=== PATIENT | female | born 1990 | race Caucasian/White ===

== ENCOUNTER → 2017-09-26 16:04 | Outpatient (CLI) | payer BC, SELFPAY | PROVIDERS: Family Provider Internal Medicine; PCP Internal Medicine; Visit Provider Internal Medicine | DX: J02.9 Acute pharyngitis, unspecified (principal) | CPT/HCPCS: 87070 ==

== ENCOUNTER → 2019-02-04 15:08 | Outpatient (CLI) | payer BC, SELFPAY ==
[2019-02-01 09:36] VITALS: BMI 23.4
== END ==
PROVIDERS: Family Provider Internal Medicine; PCP Internal Medicine
DX: L01.03 Bullous impetigo (principal); T07.XXXA Unspecified multiple injuries, initial encounter
CPT/HCPCS: 87070; 87205

== ENCOUNTER → 2020-03-23 11:56 | Outpatient (CLI) | payer BC, SELFPAY ==
[2020-03-23 10:43] VITALS: BMI 21.7
[2020-03-28 10:39] LABS: HPV APTIMA, High Risk Negative (Negative)
== END ==
PROVIDERS: PCP Internal Medicine; Referring Provider Obstetrics & Gynecology; Visit Provider Obstetrics & Gynecology
DX: Z12.4 Encounter for screening for malignant neoplasm of cervix (principal)
CPT/HCPCS: 87624; 88175; G0145

== ENCOUNTER → 2020-05-04 12:20 | Outpatient (CLI) | payer BC, SELFPAY ==
[2020-05-04 09:25] VITALS: BMI 21.9
== END ==
PROVIDERS: PCP Internal Medicine; Referring Provider Obstetrics & Gynecology; Visit Provider Obstetrics & Gynecology
DX: N89.8 Other specified noninflammatory disorders of vagina (principal)
CPT/HCPCS: 87070; 87205

== ENCOUNTER → 2020-08-15 11:40 | Outpatient (CLI) | payer BC, SELFPAY ==
[2020-08-15 11:00] VITALS: BMI 22.1
[2020-08-15 14:25] LABS: hCG Titer Quant., Serum < 1 mIU/mL (1-3)
== END ==
PROVIDERS: PCP Internal Medicine; Referring Provider Nurse Practitioner Women's Health; Visit Provider Nurse Practitioner Women's Health
DX: N93.0 Postcoital and contact bleeding (principal); N93.9 Abnormal uterine and vaginal bleeding, unspecified
CPT/HCPCS: 84702; 87070; 87205

== ENCOUNTER → 2020-08-21 12:34 | Outpatient (CLI) | payer BC, SELFPAY ==
[2020-08-15 11:00] VITALS: BMI 22.1
--- NOTE | 2020-08-21 12:37 | US_ITS ---
STUDY: ULTRASOUND OF THE FEMALE PELVIS - COMPLETE REASON FOR EXAM: Female, 30 years old. Postcoital bleeding LMP: 07/28/2020 TECHNIQUE: Transabdominal and Transvaginal TECHNICAL QUALITY: Adequate. COMPARISON: 04/07/2016 FINDINGS: The uterus is retroverted and is in a midline position. The uterus measures 9.2 x 5.6 x 5.6 cm. Normal uterine cervix. The endometrium measures 12 mm in thickness, and is hyperechoic. There is no demonstrated endometrial mass. There is no demonstrated myometrial mass. I.U.D. - The patient does not have an I.U.D. The right ovary is visualized. The right ovary measures 4.0 x 2.7 x 2.0 cm. There is no right ovarian cyst or ovarian mass. There is no visualized right adnexal mass or complex lesion. There is normal arterial and normal venous vascularity. The left ovary is visualized. The left ovary measures 2.6 x 1.7 x 1.5 cm. There is no left ovarian cyst or ovarian mass. There is no visualized left adnexal mass or complex lesion. There is normal arterial and normal venous vascularity. There is no fluid in the cul-de-sac. The pre void volume of the bladder was 50.5 ml. The post void volume of the bladder was less than 5 ml. US/Pelvic (Non ) IMPRESSION: No suspicious sonographic findings Electronically Signed: Tobi Brock MD at 13:56 EDT , Service support ,
--- NOTE | 2020-08-21 12:37 | US_ITS ---
STUDY: ULTRASOUND OF THE FEMALE PELVIS - COMPLETE REASON FOR EXAM: Female, 30 years old. Postcoital bleeding LMP: 07/28/2020 TECHNIQUE: Transabdominal and Transvaginal TECHNICAL QUALITY: Adequate. COMPARISON: 04/07/2016 FINDINGS: The uterus is retroverted and is in a midline position. The uterus measures 9.2 x 5.6 x 5.6 cm. Normal uterine cervix. The endometrium measures 12 mm in thickness, and is hyperechoic. There is no demonstrated endometrial mass. There is no demonstrated myometrial mass. I.U.D. - The patient does not have an I.U.D. The right ovary is visualized. The right ovary measures 4.0 x 2.7 x 2.0 cm. There is no right ovarian cyst or ovarian mass. There is no visualized right adnexal mass or complex lesion. There is normal arterial and normal venous vascularity. The left ovary is visualized. The left ovary measures 2.6 x 1.7 x 1.5 cm. There is no left ovarian cyst or ovarian mass. There is no visualized left adnexal mass or complex lesion. There is normal arterial and normal venous vascularity. There is no fluid in the cul-de-sac. The pre void volume of the bladder was 50.5 ml. The post void volume of the bladder was less than 5 ml. US/Transvaginal Non- IMPRESSION: No suspicious sonographic findings Electronically Signed: Tobi Brock MD at 13:56 EDT , Service support ,
== END ==
LOC: US 12:35
PROVIDERS: PCP Internal Medicine; Referring Provider Nurse Practitioner Women's Health; Visit Provider Nurse Practitioner Women's Health
DX: N93.9 Abnormal uterine and vaginal bleeding, unspecified (principal)
CPT/HCPCS: 76830; 76856

== ENCOUNTER → 2021-04-12 10:41 | Outpatient (CLI) | payer BC, SELFPAY ==
[2021-04-12 13:01] LABS: Estradiol 167.2 pg/mL; Follicle Stimulating Hormone 7.4 mIU/mL; Luteinizing Hormone 27.1 mIU/mL
[2021-04-16 14:08] LABS: Testosterone, Free 0.09 ng/dL (0.10-0.85); Testosterone, Total 7 ng/dL (8-60)
[2021-04-16 19:08] LABS: Testosterone, % Free 1.25 % (0.50-2.80)
== END ==
PROVIDERS: PCP Internal Medicine; Referring Provider Obstetrics & Gynecology; Visit Provider Obstetrics & Gynecology
DX: N93.0 Postcoital and contact bleeding (principal)
CPT/HCPCS: 36415; 82670; 83001; 83002; 84402; 84403

== ENCOUNTER → 2022-04-19 | Outpatient (CLI) | payer BC, SELFPAY ==
[2022-04-27 20:59] LABS: HPV APTIMA, High Risk Negative (Negative)
== END | disposition home or self-care (01) ==
LOC: LABSPEC 16:49
PROVIDERS: PCP Internal Medicine; Visit Provider Obstetrics & Gynecology
DX: Z12.4 Encounter for screening for malignant neoplasm of cervix (principal)
CPT/HCPCS: 87624; 88175; G0145

== ENCOUNTER → 2023-04-21 | Outpatient (CLI) | payer BC, SELFPAY ==
[2023-04-21 10:57] LABS: Estradiol 37.4 pg/mL; Follicle Stimulating Hormone 5.9 mIU/mL; Luteinizing Hormone 3.5 mIU/mL; Prolactin 3.9 ng/mL; Thyroid Stim Hormone (TSH) 0.65 uIU/mL (0.358-3.74)
== END | disposition home or self-care (01) ==
PROVIDERS: PCP Internal Medicine; Referring Provider Obstetrics & Gynecology; Visit Provider Obstetrics & Gynecology
DX: N93.9 Abnormal uterine and vaginal bleeding, unspecified (principal)
CPT/HCPCS: 36415; 82670; 83001; 83002; 84146; 84439; 84443

== ENCOUNTER → 2023-04-25 | Outpatient (CLI) | payer BC, SELFPAY ==
--- NOTE | 2023-04-25 16:21 | US_ITS ---
EXAM: US PELVIS TRANSABDOMINAL AND TRANSVAGINAL, COMPLETE CLINICAL INDICATION: abnormal uterine bleeding TECHNIQUE: Transabdominal and transvaginal pelvic ultrasound was performed with grayscale and color Doppler imaging. Transvaginal imaging was used for better evaluation of the endometrium and adnexa. COMPARISON: No relevant prior studies available. FINDINGS: UTERUS/CERVIX: Unremarkable. Anteverted. There is no uterine mass. The uterus measures 9.7 x 6.3 x 4.7 cm. The endometrial stripe measures 0.7 cm in thickness. RIGHT OVARY: Unremarkable. Blood flow is present in the right ovary. The right ovary measures 3.0 x 1.8 x 1.6 cm. LEFT OVARY: Unremarkable. Blood flow is present in the left ovary. The left ovary measures 2.9 x 1.5 x 1.5 cm. FREE FLUID: None. BLADDER: Unremarkable as visualized. Wall is normal thickness for degree of distention. US/Pelvic w/ Transvaginal IMPRESSION: Unremarkable pelvic ultrasound. Electronically Signed: Tayo Trevino MD at 5:06 EST ,
== END | disposition home or self-care (01) ==
LOC: US 16:20
PROVIDERS: PCP Internal Medicine; Referring Provider Obstetrics & Gynecology; Visit Provider Obstetrics & Gynecology
DX: N93.9 Abnormal uterine and vaginal bleeding, unspecified (principal)
CPT/HCPCS: 76830; 76856